=== PATIENT | female | born 1990 | race Caucasian/White ===

== ENCOUNTER 2021-08-25 21:47 | Emergency (ER) | payer BC ==
[~2021-08-25] VITALS: Ht 167.6 cm; Wt 92.2 kg
[2021-08-25] MEDS ORDERED: ketorolac trometh. 30mg/ml inj. IM ONE (22:10)
[2021-08-25] MEDS ORDERED: PHENAZOPYRIDINE 95 MG PO PRN (22:10)
[2021-08-26 00:50] LABS: COLOR,URINE YELLOW (Yellow); GLUCOSE, URINE NEGATIVE (Neg); KETONES,URINE NEGATIVE (Neg); LEUKOCYTE ESTERASE ,URINE LARGE (Neg); NITRITES, URINE NEGATIVE (Neg); OCCULT BLOOD,URINE LARGE (Neg); PROTEIN,URINE NEGATIVE (Neg); UROBILINOGEN,URINE 0.2 E.U/dL (0.2-1.0)
[2021-08-26] MEDS ORDERED: phenazopyridine 100mg tablet PO PRN (00:53)
[2021-08-26 00:55] LABS: URINE AMPHETAMINE SCREEN NEGATIVE (Neg); URINE BARBITUATE SCREEN NEGATIVE (Neg); URINE BENZODIAZEPINES SCREEN NEGATIVE (Neg); URINE CANNABINOID SCREEN NEGATIVE (Neg); URINE COCAINE SCREEN NEGATIVE (Neg); URINE METHADONE SCREEN NEGATIVE (Neg); URINE OPIATE SCREEN NEGATIVE (Neg); URINE PHENCYCLIDINE SCREEN NEGATIVE (Neg)
[2021-08-26 00:56] LABS: CLARITY,URINE SLIGHTLY CLOUDY (Clear); UA COLLECTION TYPE CLN CATCH MIDSTREAM
[2021-08-26 00:57] LABS: BACTERIA,URINE FEW /HPF (Neg); SQUAMOUS EPITHELIAL CELL,UR FEW /LPF (FEW); WBC,URINE 50-100 /HPF (0-4)
[2021-08-26] MEDS ORDERED: CefTRIAXone 1000mg IM Kit (w/lidocaine diluent) IM ONE (01:20)
[2021-08-26] MEDS ORDERED: CEPH250T PO (01:23)
[2021-08-26] MEDS ORDERED: ONDA4TAB12 PO (01:23)
[2021-08-26 01:57] VITALS: BP 126/74
== END 2021-08-26 02:01 | disposition home or self-care (01) ==
LOC: VAS 21:48
DX: N39.0 Urinary tract infection, site not specified (principal); R31.9 Hematuria, unspecified; R10.9 Unspecified abdominal pain; Z79.899 Other long term (current) drug therapy
CPT/HCPCS: 80305; 81001; 96372; 99284; J0696; J1885